=== PATIENT | female | born 1975 | race Caucasian/White ===

== ENCOUNTER 2025-03-28 10:50 | Emergency (ER) | payer MEDICARE, SELFPAY ==
[2025-03-28 11:02] VITALS: BP 149/90
--- NOTE | 2025-03-28 11:43 | ED.GENMED ---
History of Present Illness
General
Chief Complaint: Back Pain
Time Seen by Provider: 03/28/25 11:42
History of Present Illness
History of Present Illness:
TIME OF INITIAL ENCOUNTER: 11:45 AM
HPI: Patient presents with low back pain. The patient had a laminectomy/spinal fusion at the end of November. She was on narcotic analgesia for 4 weeks postop but they would not give her any additional narcotic analgesia. She states the pain is
persisting and not improving. She think she has had some urinary retention.
EXAM:
GENERAL: Appears uncomfortable
HEENT: Moist oral mucosa
ABDOMEN: Soft with no peritoneal signs, no tenderness
NEUROLOGIC: The patient has an antalgic gait, there is diffuse lumbar tenderness
PSYCHIATRIC: Appropriate mental status, normal insight and judgement
BACK: Decreased active range of motion of the thoracolumbar spine due to pain, antalgic gait, diffuse lumbar tenderness
EXTREMITIES: Nontender, no edema, moves all extremities equally
SKIN: No rash, no lesions
NUMBER AND COMPLEXITY OF PROBLEMS ADDRESSED AT THE ENCOUNTER
� Chronic conditions affecting care: Chronic low back pain
� Acute Exacerbation and/or Progression of Chronic Illness: This is an ongoing problem since her surgery several months ago
� Differential Diagnosis includes: Spinal stenosis, based on physical exam no evidence of serious spinal etiology as she has excellent strength in lower extremities and no urinary retention
AMOUNT AND/OR COMPLEXITY OF DATA TO BE REVIEWED AND ANALYZED
� I performed an independent evaluation of and my interpretation is:
EKG:
CT:
X-rays: X-ray shows no acute fracture or malalignment, postop findings noted. She has had laminectomy and posterior fusion at L4-5 and hardware is intact, advanced to space narrowing noted at L3-4
Laboratory Studies:
Other:
� Review of other/old records: No old records available for review in [facility]
� Clinical information was obtained by an independent historian:
� Prescriptions/Medications Considered but not given:
� Further testing considered but not performed:
RISK OF COMPLICATIONS AND/OR MORBIDITY OR MORTALITY OF PATIENT MANAGEMENT
� Social determinants of health affecting care: Lives at home in [place]
� Discussion with other providers: Call placed to Dr. Kavon Moore at around 12 PM. I spoke to nurse practitioner with Dr. Aiken at 2:15 PM. They will try to expedite her getting a close outpatient follow-up with them
possibly tomorrow. I am told by the nurse practitioner that the patient also sees pain management. The patient tells me that she only saw pain management once after her procedure.
� Escalation of care including admission/observation vs risk of discharge considered: The patient describes her pain as rather severe. She was given 2 Percocet and states she got a ride here and will have a ride back home.
ANY OTHER UPDATES:
Postvoid residual bladder scan showed 40 mL of urine.
Phy Exam
Physical Exam
Physical Exam:
See HPI
Course
Orders/Labs/Results
Orders:
Orders
03/28/25 11:52
CR Lumbar Spine Comp Min 4 Vw* Urgent
Comment:
Reason For Exam: pain after laminectomy / fusion Nov
03/28/25 12:21
Oxycodone/Acetaminophen [Percocet 5/325] 2 tablet PO NOW STA
Vital Signs
Initial and Last Documented VS:
Initial Vital Signs
Temp Pulse Resp BP Pulse Ox
36.7 C 92 20 149/90 98
03/28/25 11:02 03/28/25 11:02 03/28/25 11:02 03/28/25 11:02 03/28/25 11:02
Last Documented Vital Signs
Temp Pulse Resp BP Pulse Ox
36.7 C 92 20 149/90 98
03/28/25 11:02 03/28/25 11:02 03/28/25 11:02 03/28/25 11:02 03/28/25 11:02
*Critical Care Note
Total Time (30-74mins, 75-104mins- exclusive of procedures): Not Applicable
ED Attending Note
-
Portions of this chart may have been created with voice recognition software.� Occasional wrong word or��sound alike� substitutions may have occurred due to the inherent limitations of voice recognition software.
Discharge Plan
Departure
Patient Disposition: Home (Routine Discharge)
Date of Disposition: 03/28/25
Time of Disposition: 14:15
Patient with high blood pressure during this ER visit?: Yes
Discharge Problem:
Back pain
Instructions: Low Back Pain (DC)
Prescriptions:
New
oxycodone-acetaminophen [Percocet] 5-325 mg tablet
1 - 2 tab PO Q6HPRN PRN (Reason: pain) Qty: 10 0RF
Referrals:
Yousuf Benjamin [Other]
YOUSUF BENJAMIN [Other]
Kavon Aiken MD [Non-Admitting Privileges] - Next open appointment
Activity Restrictions/Additional Instructions:
I did speak to one of the nurse practitioners associated with Dr. Aiken. They should be calling you to arrange close follow-up. I also recommend that you follow-up with pain management as well. I am sending a prescription for narcotic to your
pharmacy for a couple of days. Return here if worse or other concerns.
Interventions
Interventions:
*Risk Screen - Suicide Last Done: 03/28/25 11:02
*General Assessment Last Done: 03/28/25 11:02
*Neglect/Abuse Screening Last Done: 03/28/25 11:02
ED-Musculoskeletal Assessment Last Done: 03/28/25 14:32
Discharge Date and Time
Print Language: EMIRATI
[2025-03-28] MEDS: PERCOCET 5/325 2 TABLET PO (12:41)
[2025-03-28 14:32] VITALS: BP 123/77
== END 2025-03-28 14:44 | disposition home or self-care (01) ==
LOC: EMR 10:50
PROVIDERS: EMERGENCY PHYSICIAN Emergency Medicine
DX: M54.50 Low back pain, unspecified (principal); Z98.1 Arthrodesis status
CPT/HCPCS: 99283; 72110